=== PATIENT | male | born 1990 | race Caucasian/White ===

== ENCOUNTER 2017-04-14 00:56 | Emergency (ER) | payer OTHER ==
[2017-04-14] MEDS: PENICILLIN V K 250 MG TABLET. PO (02:03)
[2017-04-14] MEDS: IBUPROFEN 800 MG TABLET. PO (02:03)
== END 2017-04-14 02:11 | disposition home or self-care (01) ==
LOC: ER 02:11
DX: K06.020 Generalized gingival recession, unspecified (principal); K08.89 Other specified disorders of teeth and supporting structures
CPT/HCPCS: 99283